=== PATIENT | male | born 1975 | race Two or more races ===

== ENCOUNTER 2023-11-16 08:46 | Emergency (ER) | payer BC, SELFPAY ==
[2023-11-16] VITALS (12 sets, daily range): BP systolic 200–217; BP diastolic 110–136; PULSE 81–90; RESP 12–22; TEMP 36.6; O2SAT 94–98; BMI 32.3
--- NOTE | 2023-11-16 09:12 | ED_ITS ---
HPI - Back Pain/Injury General Chief Complaint: Back Pain/Injury Stated Complaint: BACK PAIN DUE TO A FALL Time Seen by Provider: 11/16/23 09:07 Source: patient Mode of arrival: walk-in Limitations: no limitations History of Present Illness HPI Narrative: This patient here is with after sustaining a fall yesterday. He was walking down his stairs and they are would, slippery. He has bruising over his lower left paralumbar area. This is just below the bottom rib on the left side. He has been voiding and has not seen any blood. He does not have any abdominal pain. His blood pressure is elevated he does appear to be uncomfortable. He did not take his blood pressure meds today. He has not had any vomiting or change blood in his stools that he is aware of. He has had cervical neck procedures and surgery but nothing to his lumbar spine. He does not have any radiculopathy paresis paresthesias tingling or numbness in the extremity. Related Data Allergies Allergy/AdvReac Type Severity Reaction Status Date / Time Penicillins Allergy Verified 11/16/23 08:55 PFSH PFSH Social History Smoking status: Former smoker Exam Narrative Exam Narrative: Patient moves about cautiously. He has got a large area of ecchymosis just below the left posterior 12th rib. There is no hematoma or laceration. He has absolutely no discomfort to aggressive palpation over the midline and the spinous process. There breath sounds are normal bilaterally. There is no pleural or pericardial rub. He does not have any pain with palpation of the ribs themselves. The rest of trunk torso and extremity are normal. He does not have any abdominal pain. He does not have any radiculopathy or pain into his extremity. Constitutional Vital Signs, click to edit/add: Last Vital Signs Temp 98 F 11/16/23 08:55 Pulse 89 11/16/23 08:55 Resp 16 11/16/23 08:55 BP 217/136 H 11/16/23 08:55 Pulse Ox 97 11/16/23 08:55 O2 Del Method Room Air 11/16/23 08:55 Course Vital Signs Vital signs: Vital Signs Temperature 98 F 11/16/23 08:55 Pulse Rate 89 11/16/23 08:55 Respiratory Rate 16 11/16/23 08:55 Blood Pressure 217/136 H 11/16/23 08:55 Pulse Oximetry 97 11/16/23 08:55 Oxygen Delivery Method Room Air 11/16/23 08:55 Temperature 98 F 11/16/23 08:55 Pulse Rate 89 11/16/23 08:55 Respiratory Rate 16 11/16/23 08:55 Blood Pressure 217/136 H 11/16/23 08:55 Pulse Oximetry 97 11/16/23 08:55 Oxygen Delivery Method Room Air 11/16/23 08:55 MDM - Back Pain/Injury MDM Narrative Medical decision making narrative: Although the mechanism is not severe he does have substantial ecchymosis. A CT will be done to rule out bony injury as well as any injury to his kidney and possibly spleen although that is clinically very unlikely. In fact a CT scan is normal with no acute traumatic injury noted by the radiologist. He will be placed on rest for 48 hours analgesics and ice. Discharge Plan Discharge Chief Complaint: Back Pain/Injury Clinical Impression: Lumbar contusion Patient Disposition: Home, Self-Care Time of Disposition Decision: 10:26 Additional Instructions: Ice, off work 48 hours/[place] for severe pain Referrals: Physician,Non-Staff, MD [Primary Care Provider] - 1 week Stand Alone Forms: Portal Instructions
--- NOTE | 2023-11-16 09:13 | CT_ITS ---
[address] [address] Patient Name: MINOR LUNA MRN: [id number] date: 1975 Sex: M Assigned Patient Location: ER Current Patient Location: ED.MAIN Accession/Order Number: [id number] Exam Date: 11/16/2023 09:20 Report Date: 11/16/2023 10:34 At the request of: MADISON NEELY Procedure: CT abdomen pelvis wo con CLINICAL HISTORY: Trauma left lower ribs/paralumbar. Left lower quadrant pain, status post fall on wooden steps, hitting lower back 2 days ago. EXAMINATION: Unenhanced CT scan of the abdomen and pelvis: 11/16/2023. COMPARISON: None. TECHNIQUE: 3 mm axial images from lung bases through ischial tuberosities without intravenous or oral contrast were obtained. Sagittal, coronal reconstructions were also performed. FINDINGS: This study overall is limited secondary to lack of intravenous, oral contrast. Within limits the lung bases demonstrate no focal abnormalities. The heart size seems normal. CT ABDOMEN: For a noncontrast study the liver, gallbladder, spleen, pancreas, adrenal glands, kidneys appear normal. There is no hydronephrosis, nephrolithiasis or perinephric fat stranding. The abdominal aorta is mildly atherosclerotic. There is no retroperitoneal or mesenteric adenopathy. The bowel loops are of normal caliber. The appendix seems normal. CT PELVIS: There are scattered diverticula in the colon. There is no ureterolithiasis. The bladder, prostate, seminal vesicles appeared normal. There is no pelvic adenopathy. There is a segment of sigmoid colon, image 99 sequence 3 which seems slightly narrowed but does not have typical appearance of a mass nonetheless clinical correlation might be of value. The images on bone windows demonstrate there are no fractures of the hip joints. No definite fractures of the sacrum, other pelvic bones, lower thoracic, upper lumbar segments are seen. The visualized lower ribs particularly on the right seem intact. CT/CT abdomen pelvis wo con IMPRESSION: 1. Limited study secondary to lack of intravenous contrast. 2. No discrete injury to lower thoracic, intra-abdominal or pelvic organs. 3. There is no nephro or ureterolithiasis. 4. Normal appendix. 5. There is a segment of sigmoid colon which seems slightly narrowed, this does not have typical masslike appearance nonetheless clinical correlation, and if need be with colonoscopy findings might be of value. 6. No fractures of the visualized lower thoracic, lumbar segments of the lower lobes. Electronically authenticated by: LOYD MONTES Date: 11/16/2023 10:34
[2023-11-16 10:04] LABS: Bilirubin Urine NEGATIVE (NEGATIVE); Blood Urine NEGATIVE (NEGATIVE); Clarity Urine CLEAR (CLEAR); Color Urine LT. YELLOW (YELLOW); Glucose Urine UA NEGATIVE (NEGATIVE); Ketones Urine NEGATIVE (NEGATIVE); Leukocyte Esterase Urine NEGATIVE (NEGATIVE); Nitrite Urine NEGATIVE (NEGATIVE); Protein Urine 30 mg/dL (NEG/TRACE); Specific Gravity Urine 1.015 (1.005-1.025); Urobilinogen Urine 0.2 EU/dL (0.2-1.0); pH Urine 7.5 (5.0-9.0)
[2023-11-16 10:06] LABS: Urine Microscopic Indicated YES
[2023-11-16 10:31] LABS: Bacteria Urine NONE SEEN #/HPF (NONE SEEN); Cast Seen? SEEN #/LPF (NONE SEEN); Crystals Seen? None Seen #/HPF (None Seen); Hyaline Casts Urine RARE; Mucus Urine NONE SEEN (NONE SEEN); RBC Urine NONE SEEN #/HPF (0-2); Squamous Epithelial Cell Urine RARE #/LPF (NONE/RARE); WBC Urine NONE SEEN #/HPF (NONE SEEN)
--- NOTE | 2023-11-16 12:27 | ECG_ITS ---
[facility] Test Date: 2023-11-16 Pat Name: MINOR LUNA Department: Room: - Gender: Male Claim Specialist: : 1975 Requested By: Order Number: [id number] Reading MD: MARIA ESTHER LUZ Measurements Intervals [place] Rate: 84 P: 38 WA: 128 QRS: 25 QRSD: 92 T: 46 QT: 348 QTc: 389 Interpretive Statements 1100 Sinus rhythm 9110 normal ECG No previous ECG available for comparison Electronically Signed On 11-17-2023 6:36:47 EST by MARIA ESTHER LUZ
== END 2023-11-16 10:58 | disposition home or self-care (01) ==
PROVIDERS: Emergency Provider Emergency Medicine Emergency Medical Services
DX: S30.0XXA Contusion of lower back and pelvis, initial encounter (principal); W10.9XXA Fall (on) (from) unspecified stairs and steps, initial encounter; Z87.891 Personal history of nicotine dependence
CPT/HCPCS: 74176; 81001; 93005; 99284